=== PATIENT | male | born 1950 | race Caucasian/White ===

== ENCOUNTER 2023-01-26 09:09 | Outpatient (CLI) | payer MEDICARE, SELFPAY ==
--- NOTE | 2023-01-26 07:24 | W.ANESCHARGE ---
Anesthesia Charges Start Date/Time Anesthesia Start Date: 01/26/23 Anesthesia Start Time: 10:17 Stop Date/Time Anesthesia Stop Date: 01/26/23 Anesthesia Stop Time: 11:03 Summary Extremes of Age - Over 70 or under 1: MDA
--- NOTE | 2023-01-26 11:08 | W.ANESCHARGE ---
Anesthesia Charges Start Date/Time Anesthesia Start Date: 01/26/23 Anesthesia Start Time: 10:17 Stop Date/Time Anesthesia Stop Date: 01/26/23 Anesthesia Stop Time: 11:03
== END 2023-01-26 09:10 | disposition home or self-care (01) ==
LOC: OP CLINIC 09:14
PROVIDERS: PCP Family Medicine; Visit Provider Internal Medicine Gastroenterology
DX: R19.7 Diarrhea, unspecified (principal); K63.5 Polyp of colon
CPT/HCPCS: 45380; 45385; 811; 88305; 99100; J0461; J2704